=== PATIENT | male | born 1995 | race Caucasian/White ===

== ENCOUNTER 2024-01-24 22:54 | Emergency (ER) | payer OTHER, SELFPAY ==
[2024-01-24 22:57] VITALS: BP 179/102; PULSE 60; RESP 16; TEMP 36.1; O2SAT 100; BMI 26.4
[2024-01-24 23:19] VITALS: BP 138/62
--- NOTE | 2024-01-24 23:57 | CT_ITS ---
The [address] [address] Patient Name: ENIO HARGROVE MRN: [id number] date: 1995 Sex: M Assigned Patient Location: ER Current Patient Location: ER Accession/Order Number: [id number] Exam Date: 01/24/2024 23:59 Report Date: 01/25/2024 01:20 At the request of: THANIA PAVON Procedure: CT head/brain wo con CT OF THE BRAIN WITHOUT CONTRAST: 01/24/2024 11:59 PM EDT HISTORY: Headache. TECHNIQUE: Contiguous axially collimated images were obtained through the intracranial compartment, from the vertex through the foramen magnum. Coronal and Sagittal reformatted images were prepared on a separate workstation and reviewed on the PACS for anatomic correlation. No contrast was administered. This CT exam was performed using one or more of the following dose reduction techniques: Automated exposure control, adjustment of the mA and/or kV according to patient size, or use of iterative reconstruction technique. Thin section coronal and sagittal images were reconstructed from the axial data set. All images were reviewed and interpreted. COMPARISON: None. FINDINGS: There is no intracranial hemorrhage or abnormal extra-axial fluid collection. To the extent of evaluated with noncontrast technique, there is no mass lesion appreciated. There is no mass-effect or shift of midline structures. The ventricles and CSF spaces are age appropriate. There is no evidence of hydrocephalus. There is no effacement of the basal cisterns. Zhang white matter differentiation is well preserved throughout, without evidence of acute ischemia. There is no significant leukomalacia. The basal ganglia and thalami are unremarkable. The posterior fossa, brain stem, and fourth ventricle are normal. There is no tonsillar ectopy. The calvarium is intact, without destructive lesion or depressed fracture. The mastoid air cells are well-aerated. The paranasal sinuses demonstrate air-fluid levels within the upper left maxillary sinus with opacification throughout sphenoid sinus. Remaining sinuses are clear. CT/CT head/brain wo con IMPRESSION: 1. Possible acute left maxillary sinusitis. Incomplete imaging of the sinuses mostly maxillary. 2. Near complete opacification of the sphenoid sinus. Suspect large underlying mucous retention cyst. This could cause chronic headache as well. 3. No acute intracranial findings. Intracranial structures are within normal limits. Electronically authenticated by: LORENA ABDALLA Date: 01/25/2024 01:20
[2024-01-25] MEDS: DIPHENHYDRAMINE HCL 50 MG/ML (1ML) VIAL IV (00:15)
[2024-01-25] MEDS: 0.9 % SODIUM CHLORIDE 1,000 ML 999 ML IV (00:15)
[2024-01-25] MEDS: METOCLOPRAMIDE HCL 10 MG/2 ML VIAL IVP (00:21)
[2024-01-25] MEDS: MORPHINE SULFATE 4 MG/ML VIAL IV (00:21)
[2024-01-25] MEDS: DEXAMETHASONE SOD PHOS 10 MG/ML VIAL IV (00:21)
[2024-01-25] MEDS: MAGNESIUM SULFATE IN WATER 2 GM/50 ML PREMIX IV (00:23)
--- NOTE | 2024-01-25 00:26 | ED_ITS ---
HPI - General Adult General Chief complaint: Headache Stated complaint: headache Time Seen by Provider: 01/24/24 22:59 Source: patient Mode of arrival: walk-in Limitations: no limitations History of Present Illness HPI narrative: 28-year-old male to the emergency department with chief complaint of Headache. Patient reports that for several years has been getting a headache once or twice per month that occurs only with sexual stimulation. He reports that it initially starts out as a dull headache and worsens significantly peaking at climax. It appears only happen with sexual stimulation. He denies any vision changes, numbness, weakness, tingling, difficulty speaking during these episodes. He is typically able to take some Excedrin and it improves rapidly. He reports that once every few months it is worse than typical and does not respond to Excedrin alone. Tonight he reports he took Excedrin and it continued to hurt. The pain is located in the back of his head. It is similar to past episodes just more intense. It occurred approximately three hours prior to arrival. He is otherwise been at his baseline health. Event tonight had typical course with onset during sexual stimulation. Related Data Previous Rx's Medication Instructions Recorded indomethacin 25 mg capsule 25 mg PO BID PRN TAKE 30 MIN PRIOR 01/25/24 TO INTERCOURSE #14 caps Allergies Allergy/AdvReac Type Severity Reaction Status Date / Time No Known Drug Allergies Allergy Verified 01/24/24 23:04 Review of Systems ROS Status of ROS 10 or more systems reviewed and unremark able except as noted in history and below [facility] Social History Smoking status: Never smoker Exam Narrative Exam Narrative: VITALS: I have reviewed the triage vital signs. GENERAL: Well developed, well appearing adult in no acute distress. NEURO: Alert and oriented x4. Moves all extremities. Face is symmetric and expressive. Cranial nerves II through XII grossly intact as tested. Muscular strength and sensation grossly intact upper and lower extremities bilaterally. No dysarthria. No aphasia. No ataxia. Normal gait. NIHSS 0. EYES: PERRL. No scleral icterus or conjunctival injection. No discharge. HENT: Normocephalic, atraumatic. Hearing is grossly intact. Nares grossly patent and without discharge. Mucous membranes moist. NECK: No JVD. Patient moves neck without restriction. No meningismus. CARDIO: Rhythm regular. Normal rate. No murmur, rub, or gallop. Pulses equal bilaterally in the upper and lower extremity. No lower extremity edema. PULM: Lungs clear to auscultation in all manning. No wheezes, rales, or rhonchi. No conversational dyspnea. No splinting, stridor, or accessory muscle use. GI/: Abdomen is soft and non-tender. Normoactive bowel sounds. EXTREMITIES: Symmetric muscle bulk. No joint swelling. No clubbing, cyanosis, or deformity. SKIN: Warm and dry. Normal turgor. No rash or lesions appreciated. PSYCH: Mood, affect, and interaction is appropriate to the setting. Constitutional Vital Signs, click to edit/add: Last Vital Signs Temp 96.9 F L 01/24/24 22:57 Pulse 55 L 01/25/24 01:41 Resp 16 01/25/24 01:41 BP 138/62 01/24/24 23:19 Pulse Ox 99 01/25/24 01:41 O2 Del Method Room Air 01/24/24 22:57 Course Vital Signs Vital signs: Vital Signs Temperature 96.9 F L 01/24/24 22:57 Pulse Rate 60 01/24/24 22:57 Respiratory Rate 16 01/24/24 22:57 Blood Pressure 179/102 H 01/24/24 22:57 Pulse Oximetry 100 01/24/24 22:57 Oxygen Delivery Method Room Air 01/24/24 22:57 Temperature 96.9 F L 01/24/24 22:57 Pulse Rate 55 L 01/25/24 01:41 Respiratory Rate 16 01/25/24 01:41 Blood Pressure 138/62 01/24/24 23:19 Pulse Oximetry 99 01/25/24 01:41 Oxygen Delivery Method Room Air 01/24/24 22:57 Medical Decision Making MDM Narrative Medical decision making narrative: Well-appearing 20-year-old male to the emergency department with chief complaint chronic headaches related to sexual stimulation. Stable, patient is afebrile. Presented today with acute headache similar neurologic examination is nonfocal. He has never had imaging before. We'll obtain a non-con CT scan of his head. CT negative. Sinus disease and mucus retention cysts which are likely unrelated to his occipital headache. Patient reexamined. His reports his headache is significantly improved. He remains neurologically intact. Patient with a primary headache that is sexually related. I will prescribe indomethacin for use when necessary before intercourse. Neurology referral and ENT referral were given. Patient and his agree with this plan. Patient was discharged home. Medical Records Medical records reviewed: Yes I reviewed the patient's medical records Imaging Data CT scan - head: Radiologist's impression: ITS Impressions Head CT 01/24/24 23:57 IMPRESSION: 1. Possible acute left maxillary sinusitis. Incomplete imaging of the sinuses mostly maxillary. 2. Near complete opacification of the sphenoid sinus. Suspect large underlying mucous retention cyst. This could cause chronic headache as well. 3. No acute intracranial findings. Intracranial structures are within normal limits. Electronically authenticated by: LORENA ABDALLA Date: 01/25/2024 01:20 Discharge Plan Discharge Stand Alone Forms: Portal Instructions Chief Complaint: Headache Clinical Impression: Headache Patient Disposition: Home, Self-Care Time of Disposition Decision: 01:48 Condition: Good Mode of Transportation: Private Vehicle Prescriptions / Home Meds: New indomethacin 25 mg capsule 25 mg PO BID PRN (Reason: TAKE 30 MIN PRIOR TO INTERCOURSE) Qty: 14 0RF Rx Instructions: administer with food or milk Print Language: [place] Referrals: TRE MICHAELS [Physician] - 1 week (FOR HEADACHE) Dina Nguyen MD [Physician] - 1 week (for mucus retention cyst) PhysicianNon-MD Jayne [Primary Care Provider] - 1 week
[2024-01-25 01:41] VITALS: PULSE 55; RESP 16; O2SAT 99
[2024-01-25 02:03] VITALS: BP 124/74; PULSE 60; RESP 16; O2SAT 100
== END 2024-01-25 02:03 | disposition home or self-care (01) ==
PROVIDERS: Emergency Provider Student in an Organized Health Care Education/Training Program
DX: R51.9 Headache, unspecified (principal)
CPT/HCPCS: 70450; 96374; 96375; 99284; J1100